=== PATIENT | male | born 1990 | race Caucasian/White ===

== ENCOUNTER → 2020-05-09 12:17 | Outpatient (CLI) | payer BC ==
--- NOTE | 2020-05-10 09:11 | EC ---
PATIENT:YAW ROBERTSON DATE OF SERVICE: 05/09/20 SEX: M MEDICAL RECORD: [id number] DATE OF : [birth year] LOCATION:[facility] AGE OF PATIENT: 29 ADMISSION DATE: 05/09/20 REFERRING PHYSICIAN: INTERPRETING PHYSICIAN: BIANCA LARES MD ECHOCARDIOGRAM REPORT ECHO CHARGES 4 ECHO COMPLETE Date: 05/09/20 CLINICAL DIAGNOSIS: HEART MURMUR ECHOCARDIOGRAPHIC MEASUREMENTS (adult normal given) AC root (d.<3.7cm) 3.3 cm LV Septum d (<1.2 cm> 1.1 cm Valve Excursion 1.9 cm LV Septum (systole) 1.5 cm Left Atria (s.<4.0cm> 3.6 cm LVPW d(<1.2cm) 1.2 cm RV (d.<2.3cm) 4.5 cm LVPW (sytole) 1.5 cm LV diastole(<5.6CM) 5.3 cm MV E-F(>70mm/sec) cm LV systole 3.1 cm LVOT Diameter 2.1 cm MV exc.(>10mm) cm Est.ejection fraction (50-75%) % DOPPLER: LVIT cm/sec A 64.0 cm/sec E 85.0 cm/sec LA cm/sec RVSP 36 mmHg LVOT 110 cm/sec AOP1/2T m/s Asc. Ao 139 cm/sec RVOT 70 cm/sec RA cm/sec PA 149 cm/sec AV Gradient Peak 7.72 mmHg AV Mean 4.19 mmHg AV Area 3.3 cm MV Gradient Peak 3.50 mmHg MV Mean 1.72 mmHg MV Area cm COMMENTS: Reinforced Concrete Inspector: 2 WILLOW LU New Accounts Banking Representative: 3 Dr. Culver TAPE# PACS Pericardial Effusion N DATE OF SERVICE: Adequate 2D, color flow imaging, spectral Doppler, and M-Mode. No LVH. LV internal dimensions are normal. Wall motion normal. EF greater than or equal to 55%. Aortic valve is tricuspid. No evidence of stenosis by Doppler interrogation. Left atrium is normal. Mitral valve shows no prolapse. Physiologic MR. Right-sided chambers are grossly normal. Physiologic TR. TRANSINT:[id number] Voice Confirmation ID: [id number] DOCUMENT ID: [id number] ECHOCARDIOGRAM REPORT [id number] YAW ROBERTSON BIANCA LARES MD at 0911 CC: [id number] DICTATION DATE: 05/09/20 1505 ASSOCIATE PROJECT MANAGER: 05/09/20 2256 DEP CLI 05/09/20 [id number] [place] [address]
== END | disposition home or self-care (01) ==
LOC: D.HCCARDIO 12:17
PROVIDERS: ATTEND Internal Medicine Interventional Cardiology
DX: R07.9 Chest pain, unspecified (principal); R01.1 Cardiac murmur, unspecified